=== PATIENT | female | born 1980 | race Hispanic/Latino ===

== ENCOUNTER 2018-08-15 21:30 | Emergency (ER) | payer OTHER ==
[2018-08-15] MEDS ORDERED: Sodium Chloride 0.9% 1,000 ML IV ONE (21:53)
--- NOTE | 2018-08-15 21:53 | C.PDOC ---
History Of Present Illness 38 year old female 10 weeks , , presents to the ED c/o vaginal bleeding that started earlier today. Patient states she went to the gym, did some ballet and noticed some vaginal bleeding after. Patient denies fever, chill s, nausea, vomit, headache, dizziness, SOB, palpitations, rash. Time Seen by Provider: 08/15/18 21:52 Chief Complaint (Nursing): Female Genitourinary History Per: Patient History/Exam Limitations: no limitations Onset/Duration Of Symptoms: Hrs Current Symptoms Are (Timing): Still Present Quality Of Discomfort: "Pain" Associated Symptoms: denies: Nausea, Vomiting, Diarrhea, Urinary Symptoms Recent travel outside of the [place]: No Additional History Per: Patient Abnormal Vaginal Bleeding: Yes Last Menstral Period: 05-29-18 : 1 Para: 0 Past Medical History Reviewed: Historical Data, Nursing Documentation, Vital Signs - Medical History PMH: No Chronic Diseases Surgical History: No Surg Hx Family History: States: Unknown Family Hx - Social History Hx Alcohol Use: No Hx Substance Use: No Review Of Systems Constitutional: Negative for: Fever, Chills Eyes: Negative for: Vision Change Cardiovascular: Negative for: Chest Pain, Palpitations Respiratory: Negative for: Shortness of Breath Gastrointestinal: Negative for: Nausea, Vomiting, Abdominal Pain Genitourinary: Positive for: Vaginal Bleeding. Negative for: Dysuria, Vaginal Discharge Skin: Negative for: Rash Neurological: Negative for: Weakness, Numbness Physical Exam - Physical Exam Appears: Non-toxic, No Acute Distress Skin: Warm, Dry Head: Normacephalic Eye(s): bilateral: Normal Inspection Oral Mucosa: Moist Neck: Supple Chest: Symmetrical Cardiovascular: Rhythm Regular Respiratory: No Rales, No Rhonchi, No Wheezing Gastrointestinal/Abdominal: Soft, Tenderness (mild suprapubic ), No Guarding, No Rebound Extremity: Bilateral: Atraumatic, Normal Color And Temperature, Normal ROM Neurological/Psych: Oriented x3, Normal Speech, Normal Cognition Gait: Steady ED Course And Treatment - Laboratory Results Result Diagrams: 08/15/18 22:24 08/15/18 22:24 O2 Sat by Pulse Oximetry: 98 (ON RA) Pulse Ox Interpretation: Normal Progress Note: Plan: - Labs. - IV fluids. - UA. - Pelvic US Medical Decision Making Medical Decision Making: Upon provider reevaluation patient is feeling better, is medically stable, and requires no further treatment in the ED at this time. Patient will be discharged home . Counseling was provided and all questions were answered regarding diagnosis and need for follow up with the referred clinic. There is agreement to discharge plan. Return if symptoms persist or worsen. Disposition Counseled Patient/Family Regarding: Studies Performed, Diagnosis, Need For Followup - Disposition Disposition: HOME/ ROUTINE Disposition Time: 21:53 Condition: FAIR Additional Instructions: Please follow up with your event specialist food demonstrator and return if symptoms recur Instructions: Bleeding With (DC) Forms: [employer] (Swazi) - Clinical Impression Clinical Impression: Vaginal bleeding during - Scribe Statement The provider has reviewed the documentation as recorded by the Scribe Cornell Mancilla All medical record entries made by the Scribe were at my direction and person ally dictated by me. I have reviewed the chart and agree that the record accurately reflects my personal performance of the history, physical exam, medical decision making, and the department course for this patient. I have also personally directed, reviewed, and agree with the discharge instructions and disposition.
[2018-08-15 22:12] VITALS: BP 136/79; PULSE 81; RESP 18; TEMP 98; O2SAT 98
[2018-08-15 22:32] LABS: BASO % 0.3 % (0.0-2.0); EOS # 0.2 K/uL (0.0-0.7); EOS % 2.5 % (0.0-4.0); HEMOGLOBIN 12.4 g/dL (11.0-16.0); LYMPH # 2.8 K/uL (1.0-4.3); LYMPH % 38.3 % (20.0-40.0); MEAN CELL VOLUME 90.3 fL (81.0-99.0); MEAN CORPUSCULAR HGB CONC 34.3 g/dL (33.0-37.0); MEAN PLATELET VOLUME 8.1 fL (7.2-11.7); MONO # 0.6 K/uL (0.0-0.8); MONO % 7.5 % (0.0-10.0); NEUT # 3.8 K/uL (1.8-7.0); NEUT % 51.4 % (50.0-75.0); RED CELL DISTRIBUTION WIDTH 12.8 % (11.5-14.5); WHITE BLOOD COUNT 7.4 K/uL (4.8-10.8)
[2018-08-15 22:34] LABS: URINE BILIRUBIN NEGATIVE (NEGATIVE); URINE BLOOD 2+ (NEGATIVE); URINE CLARITY Clear (Clear); URINE COLOR Colorless (YELLOW); URINE GLUCOSE (UA) NORMAL (Normal); URINE LEUKOCYTE ESTERASE NEG Leu/uL (Negative); URINE PROTEIN NEGATIVE (NEGATIVE); URINE UROBILINOGEN NORMAL mg/dL (0.2-1.0)
[2018-08-15 22:41] LABS: ALB/GLOB RATIO 1.7 (1.0-2.1); ALBUMIN 4.3 g/dL (3.5-5.0); ALT/SGPT 7 U/L (9-52); AST/SGOT 24 U/L (14-36); BLOOD UREA NITROGEN 8 mg/dL (7-17); CALCIUM 9.5 mg/dl (8.6-10.4); GFR NON-AFRICAN AMERICAN > 60; PROTHROMBIN TIME 10.4 SECONDS (9.7-12.2)
--- NOTE | 2018-08-16 11:33 | US ---
Date of service: 2018-08-15 22:17:22 Indication: vag bleed Comparison: None available Technique: Transabdominal pelvic ultrasound Findings: The uterus measures approximately 12.2 x 7.4 x 7.0 cm. Anteverted. Cervix length measures approximately 3.0 cm. There is a single intrauterine fetus present. 3 mm yolk sac. The gestational sac measures 4.8 cm and is compatible with a gestational age of 10 weeks 3 days. The crown-rump length measures 3.2 cm and is compatible with a gestational age of 10 weeks 1 day. There is heart motion which measured 140.7 BPM. The right ovary measures 3.6 x 2.4 x 3.0 cm. The left ovary measures 3.0 x 2.3 x 2.3 cm. Blood flow was demonstrated to both ovaries. Impression: Live single intrauterine with estimated gestational age 10 weeks 3 days by gestational sac calculation and 10 weeks 1 day by crown-rump length calculation. heart rate 140.7 bpm. Advise an anomaly screen at 16-18 weeks gestational age Preliminary impression was provided by [employer].
== END 2018-08-15 23:36 | disposition home or self-care (01) ==
LOC: C.ER 21:30
DX: O20.9 Hemorrhage in early pregnancy, unspecified (principal); Z3A.10 10 weeks gestation of pregnancy
CPT/HCPCS: 76801; 80053; 81001; 84702; 85025; 85610; 85730; 86850; 86900; 96360; 99284; J7030